=== PATIENT | male | born 1970 | race Caucasian/White ===

== ENCOUNTER 2023-01-02 16:17 | Emergency (ER) | payer BC ==
[2023-01-02 16:42] VITALS: PULSE 95; RESP 18; TEMP 98
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
[2023-01-02 18:17] VITALS: BP 139/76
== END 2023-01-02 18:17 | disposition home or self-care (01) ==
LOC: EC 16:17
DX: S93.401A Sprain of unspecified ligament of right ankle, initial encounter (principal); E11.9 Type 2 diabetes mellitus without complications; V28.49XA Other motorcycle driver injured in noncollision transport accident in traffic accident, initial encounter; Y92.410 Unspecified street and highway as the place of occurrence of the external cause; Y93.I9 Activity, other involving external motion
CPT/HCPCS: 99283